=== PATIENT | male | born 2000 | race Caucasian/White ===

== ENCOUNTER 2022-03-28 03:32 | Emergency (ER) | payer OTHER ==
[2022-03-28] MEDS ORDERED: Diphtheria,Pertussis(Acell),Tetanus Vaccine 0.5 ML Syringe IM ONE (04:10)
[2022-03-28] MEDS ORDERED: HYDROmorphone 0.5 MG/0.5 ML Syringe IM ONE (04:10)
[2022-03-28] MEDS ORDERED: HYDROmorphone 1 MG/ML Syringe IM ONE (05:12)
[2022-03-28] MEDS ORDERED: Ondansetron 4 MG Tab.DIS PO ONE (05:49)
[2022-03-28] MEDS ORDERED: Ondansetron 4 MG Tab.DIS ONE (05:51)
== END 2022-03-28 06:03 | disposition home or self-care (01) ==
LOC: JP.ED 03:32
DX: S01.81XA Laceration without foreign body of other part of head, initial encounter (principal); S01.512A Laceration without foreign body of oral cavity, initial encounter; S80.11XA Contusion of right lower leg, initial encounter; F17.210 Nicotine dependence, cigarettes, uncomplicated; K06.2 Gingival and edentulous alveolar ridge lesions associated with trauma; Z86.16 Personal history of COVID-19; Z23 Encounter for immunization; W22.8XXA Striking against or struck by other objects, initial encounter
CPT/HCPCS: 70486; 90471; 90715; 96372; 99283; J1170; Q0162; 99281